=== PATIENT | female | born 1940 | race Caucasian/White ===

== ENCOUNTER 2016-07-03 08:28 | Inpatient (IN) | payer MEDICARE ==
[2016-06-25 11:34] LABS: BASOPHILS 0.5 %; BASOPHILS ABSOLUTE 0.03 10/3/uL (0.0-0.16); EOSINOPHILS 0.8 %; EOSINOPHILS ABSOLUTE 0.05 10/3/uL (0.0-0.53); HEMOGLOBIN 12.6 g/dL (12.0-16.0); IMMATURE GRANULOCYTES 0.3 %; IMMATURE GRANULOCYTES ABSOLUTE 0.02 10/3/uL (0.0-0.11); LYMPHOCYTES 31.6 %; MEAN CORPUSCULAR HEMOGLOB 30.5 pg (26.0-34.0); MEAN CORPUSCULAR VOLUME 92.5 fL (80-100); MEAN PLATELET VOLUME 10.4 fL (9.2-13.0); MONOCYTES 13.6 %; MONOCYTES ABSOLUTE 0.82 10/3/uL (0.21-1.20); NEUTROPHILS 53.2 %; NEUTROPHILS ABSOLUTE 3.19 10/3/uL (2.02-8.40); PLATELET COUNT 241 10/3/uL (150-400); RED CELL COUNT 4.13 10/6/uL (4.0-5.6)
[2016-06-25 11:36] LABS: HEMATOCRIT 38.2 % (36.0-48.0); MANUAL DIFF NO %
[2016-06-25 11:44] LABS: ASCORBIC ACID (UR NOT ORDER) 20 (NEG); BILIRUBIN, URINE NEGATIVE (NEG); KETONE, URINE NEGATIVE (NEG); LEUKOCYTE ESTERASE(NOT OR LARGE (NEG); PROTIME (NOT ORD) 13.3 SEC (12.0-14.5); WBC (NOT ORDERED) (RFLEX) 8 (0-5)
[2016-06-25 11:47] LABS: ALKALINE PHOSPHATASE 72 U/L (45-117); BUN (BLOOD UREA NITROGEN) 17 MG/DL (6-23); CALCIUM, SERUM 9.1 MG/DL (8.5-10.4); CHLORIDE, SERUM 107 MMOL/L (96-112); CO2 (CARBON DIOXIDE) 28 MMOL/L (24-34); CREATININE 0.86 MG/DL (0.55-1.02); GFR AFRICAN AMERICAN 77 ML/MIN (>=60); GFR NON AFRICAN AMERICAN 66 ML/MIN (>=60); GLUCOSE, SERUM 104 MG/DL (60-99); POTASSIUM, SERUM 4.6 MMOL/L (3.5-5.3); SGOT(AST) 19 U/L (5-40); SGPT(ALT) 27 U/L (5-65); SODIUM, SERUM 143 MMOL/L (135-148); TOTAL BILIRUBIN 0.3 MG/DL (0-1.2); TOTAL PROTEIN 7.3 G/DL (6.0-8.5)
[2016-06-25 11:48] LABS: A/G RATIO 0.9 (0.7-1.9); ALBUMIN 3.5 G/DL (3.5-5.0); GLOBULIN 3.8 G/DL (2.5-4.1)
--- NOTE | ~2016-07-03 | OP ---
Record Of Operation [facility] [address] [place]. [address] NAME: DIMITRIS EDMONDSON : 40 STATUS : ADM IN PAT#: [id number] AGE: 75 ADM/REG DATE : 07/03/16 MR#: [id number] REPORT SERV DATE: 07/04/16 DICTATED BY: CHEYENNE CHARLES DATE: 07/04/16 REPORT STATUS : Draft TRANSCRIBED BY: MODL DATE: 07/04/16 DATE OF PROCEDURE: 07/03/2016 PREOPERATIVE DIAGNOSIS: Severe left knee degenerative joint disease. POSTOPERATIVE DIAGNOSIS: Severe left knee degenerative joint disease. OPERATION: Left posterior stabilized total knee replacement, cemented. SIDE: Left. SIZE: See chart. ANESTHESIA: See chart. ESTIMATED BLOOD LOSS: About 10 mL. TOURNIQUET TIME: Approximately 1 hour and 10 minutes. COMPLICATIONS: None. SPECIMENS: Articular surfaces. PROCEDURE IN DETAIL: The patient was appropriately identified and marked. The operative side agreed with the consent form and it was checked by all members of the surgical team. The patient was taken to the operating room and anesthesia was induced per the anesthesiologist. The patient was carefully transferred to the operating table without incident. The patient received appropriate prophylactic antibiotics and a Boateng catheter was placed in the standard sterile technique. The patient was then carefully positioned, padded, prepped and draped in the normal sterile fashion. The operative leg had been appropriately identified and checked by all members of the operating team against the consent form and found to be the correct limb. The patient's lower extremity was then exsanguinated with an Lars wrap and a tourniquet was inflated to 350 mm/Hg. Sharp dissection was carried out through a straight midline longitudinal incision and electrocautery through the fat. Sharp quad splitting approach was carried out between about the medial 10 percent of the tendon and the lateral 90 percent of the tendon and down around the medial aspect of the patella and then 1 cm medial to the tibial tubercle. The patella was carefully everted and the posterior fat pad was excised and gentle MCL elevation was carried out off the proximal medial tibia subperiosteally. IM guide was placed in the distal femur after using the appropriate drill. The distal femoral cutting guide was held with 2 pins and the distal cut made. Meniscal fragments and the ACL and the PCL were excised with electrocautery, carefully staying anterior to the posterior fat pad. The proximal tibial alignment guide was set appropriately and the proximal tibial cut made. Spacer block verified full extension with excellent mediolateral balance. Sizing guide was used to place 2 drill holes in the distal femur and the four-in-one cutting block was then placed, impacted and checked Record Of Operation [facility] [address] [place]. [address] NAME: DIMITRIS EDMONDSON : 40 STATUS : ADM IN PAT#: [id number] AGE: 75 ADM/REG DATE : 07/03/16 MR#: [id number] REPORT SERV DATE: 07/04/16 DICTATED BY: CHEYENNE CHARLES DATE: 07/04/16 REPORT STATUS : Draft TRANSCRIBED BY: MARIO DATE: 07/04/16 to be sure it would not notch with an devon wing and it was held with 2 pins. The anterior cut, posterior cut, anterior chamfer and posterior chamfer cuts were made. The pins were removed and the block was removed. A posterior release was carried out with a curved 3/4 inch osteotome staying right on the bone posteriorly. The box-cut guide was then placed, impacted and held with 2 pins and a reciprocating saw was used to cut out the box. With the trial components in place, there was excellent medial/lateral balance. The patella was then measured with a caliper, cut first with an oscillating saw and then reamed with a patella reamer. With the trial patella in place, there was excellent patellar tracking. Rotation was marked on the tibia and the tibia prepared with a drill and stamp chisel. All surfaces were then copiously irrigated with pulsatile lavage, carefully dried and then vacuum-mixed cement was pressurized with a cement gun in a doughy phase. The tibial component was placed, impacted and excess cement was removed. The cement was then pressurized in the femur and placed on the posterior runners of the femoral component, which was placed, impacted and excess cement removed and the knee was brought out into extension on a trial spacer. The cement was then pressurized in the patella. Patellar component was then placed, clamped and excess cement was removed. Once all cement was hardened, the knee was taken through range of motion. Further extruded cement was removed with a small osteotome. Then based on the trial inserts, we decided on the actual insert, which was placed in the standard fashion and held with a locking mechanism. The knee was then copiously irrigated and then closed in a layered fashion over a medium Hemovac drain superolaterally with interrupted #1 in the deep fascia, 2-0 subcutaneous and paul in the skin. The wounds were dressed sterilely and the tourniquet was deflated. The patient was then awakened and taken to the postanesthesia care unit without incident. All counts were correct at the end of the case. WTB/MODL Any Charles M.D. / [id number] CC: Deni Barrera MD
[~2016-07-03 08:28] MED LIST: ASA5GR PO; ASAB PO; BENADRYL 50 MG50 MG PO; CALTRA600D PO; CELEBREX2 PO; COREG12 PO; COREG3 PO; COREG6 PO; CYMBALTA60 PO; DIL2TAB PO; DIOV160 PO; FISH OIL OTC PO; FISH-EPA1000 MG PO; FLAXSEED PO; LIOR10 PO; LIPITOR80 MG PO; MCZ25 PO; METHOC500B PO; MIRALAX POWDER1 PKT PO; MIRALAXPKT PO; MULTIVITAMI1 PO; NAP250 PO; NEUR600 PO; NORCO1 TA2 PO; PCET PO; PERCOCET1 TA4 PO; PRILO PO; PRIN20 PO; RESTORIL30 MG PO; SOMATAB PO; TOPAMAX25 PO; ULTRAM50 PO; VITAMIN E OTC PO; VITC500 PO; ZESTRIL20 MG PO; ZOCOR20 PO; ZOFRAN ODT4 MG PO; ZOFRAN4 PO; ZYRTEC ALLGY10 MG PO; [UNRECOGNIZED DRUG - OTHER] PO
[2016-07-04 05:16] LABS: HEMATOCRIT 28.7 % (36.0-48.0); HEMOGLOBIN 9.5 g/dL (12.0-16.0)
[2016-07-04 05:17] LABS: INTERNATIONAL NORMAL RATI 1.2 UNITS (-); PROTIME (NOT ORD) 14.7 SEC (12.0-14.5)
[2016-07-04 05:31] LABS: BUN (BLOOD UREA NITROGEN) 15 MG/DL (6-23); CALCIUM, SERUM 8.7 MG/DL (8.5-10.4); CHLORIDE, SERUM 106 MMOL/L (96-112); CO2 (CARBON DIOXIDE) 26 MMOL/L (24-34); CREATININE 0.83 MG/DL (0.55-1.02); GFR AFRICAN AMERICAN 80 ML/MIN (>=60); GFR NON AFRICAN AMERICAN 69 ML/MIN (>=60); GLUCOSE, SERUM 122 MG/DL (60-99); POTASSIUM, SERUM 4.2 MMOL/L (3.5-5.3); SODIUM, SERUM 141 MMOL/L (135-148)
[2016-07-05 06:19] LABS: HEMATOCRIT 27.1 % (36.0-48.0); HEMOGLOBIN 8.9 g/dL (12.0-16.0)
[2016-07-05 06:26] LABS: INTERNATIONAL NORMAL RATI 1.9 UNITS (-)
[2016-07-05 06:28] LABS: PROTIME (NOT ORD) 21.9 SEC (12.0-14.5)
[2016-07-05] MEDS ORDERED: C2 PO (11:58)
[2016-07-05] MEDS ORDERED: PCET PO (11:58)
== END 2016-07-05 12:29 | disposition home or self-care (01) | DRG 470 ==
LOC: SDC/OF 08:28 → PACU 13:34 → 3SO 14:36
PROVIDERS: Specialist
PROC: 0SRD0J9 Replacement of Left Knee Joint with Synthetic Substitute, Cemented, Open Approach (ICD-10-PCS; principal; 2016-07-03 10:45)
DX: M17.12 Unilateral primary osteoarthritis, left knee (principal); I10 Essential (primary) hypertension; E78.5 Hyperlipidemia, unspecified; K21.9 Gastro-esophageal reflux disease without esophagitis; E78.00 Pure hypercholesterolemia, unspecified
CPT/HCPCS: 71020; 80048; 80053; 81001; 85014; 85018; 85025; 85610; 87077; 87086; 87186; 87641; 88305; 88311; 93005; 97110-GP; 97116-GP; 97161-GP; 97165-GO; 97530-GP; A9270-GY; C1776; G8978-CJ-GP; G8979-CH-GP; J0360; J0690; J1170; J1580; J1885; J2250; J2274; J2405; J2710; J2795; J3010